=== PATIENT | female | born 1960 | race American Indian/Alaskan Native ===

== ENCOUNTER 2016-07-20 11:25 | Emergency (ER) | payer MEDICAID ==
--- NOTE | 2016-07-20 11:50 | ED Physician Chart ---
Chief Complaint/HPI - Patient Information Date Seen:: 07/20/16 Time Seen:: 11:30 Chief Complaint:: anal pain History of Present Illness:: 56-year-old female, obese, complains of acute, constant, worsening, auditory, nonradiating, worse with sitting and walking walking and wiping, moderate, 7 out of 10, anal pain 1 week. Denies gross blood in stool, gross hematuria, abdominal pain, nausea, vomiting, chest pain or palpitations, fevers. Allergies:: Allergies Allergy/AdvReac Type Severity Reaction Status Date / Time No Known Allergies Allergy Verified 08/25/15 13:36 Vitals:: Vital Signs - 8 hr 07/20/16 11:37 Temp 98 F HR 70 RR 16 BP 142/59 O2 Sat % 98 Historian:: Patient Review:: Nurse's Note Reviewed Review of Systems - Review of Systems Other: Complete system review otherwise unremarkable except as noted in history of present illness. Past Medical History - Past Medical History Past Medical History: No significant medical hx Family History: None Social History: Non Smoker, No Alcohol, No Drug Use, Other Surgical History: None Psychiatricy History: None Medication: None Family Medical History - Family Member Mother Ethnicity: Living Status: Hx Family Diabetes: Yes Physical Exam - Physical Examination Other:: INITIAL VITAL SIGNS: Reviewed by me GENERAL: Alert and interactive. No acute distress HEAD: Head is normocephalic and atraumatic EYES: EOMI. PERRL. No scleral icterus. No conjunctival injection ENT: Moist mucous membranes. NECK: Supple. No masses. Full range of motion RESPIRATORY: No tachypnea. Clear breath sounds bilaterally. No wheezing, rales, or rhonchi CV: Regular rate and rhythm. No murmurs, rubs, or gallops ABDOMEN: Soft, non-distended, non-tender. No guarding. No rebound. No masses. EXTREMITIES: No deformity. No cyanosis. No edema. SKIN: Warm and dry. No obvious rashes. NEUROLOGIC: Alert and oriented. Face is symmetric. Speech is normal. Moves all extremities equally. Motor and sensory distally intact. RECTAL: RN Buyer Grain and Verbal Consent Obtained Sphincter tone is normal. No external hemorrhoids seen. No evidence of anal fissure or internal hemorrhoids. Non-tender to digital rectal palpation. No masses palpated. There is an area of excoriation at the 12 o'clock position. Area has burning on palpation. ED Septic Shock - . Is Septic Shock (SBP<90, OR Lactate>4 mmol\L) present?: No - <6hrs of presentation: Vital Signs: Vital Signs - 8 hr 07/20/16 11:37 Temp 98 F HR 70 RR 16 BP 142/59 O2 Sat % 98 Reassessment (Disposition) - Reassessment Reassessment:: Patient has perianal dermatitis with excoriation at the 12 o'clock position around the anal sphincter. We will prescribe hydrocortisone cream, recommended sitz baths, follow-up primary care 1-2 days. Return to ER precautions given. Patient understands and agrees with plan. Blood pressure was noted to be elevated over 120/80. There were no signs of hypertension. Discussed the findings with the patient and recommended that the patient follow up with the primary care physician regarding the elevated blood pressure. Reassessment Condition:: Improved - Diagnosis Diagnosis:: Acute anal pain due to perianal dermatitis with a small excoriation Elevated blood pressure without the diagnosis of hypertension - Aftercare/Follow up Instructions Aftercare/Follow-Up Instructions:: Counseled pt regarding lab results/diagnosis & need follow up, Refer to Discharge Instructions Medication Prescribed:: Hydrocortisone cream - Patient Disposition Discharge/Transfer:: Home Time:: 12:31 Condition at Disposition:: Improved ED Discharge Plan - Patient Disposition Admit/Discharge/Transfer: PT DISCHARGED HOME Condition at Disposition: Improved Instructions: Sitz Bath, Perianal Dermatitis Additional Instructions: Use flushable baby wipes for the next week after a bowel movement
== END 2016-07-20 12:45 | disposition home or self-care (01) ==
LOC: ER 11:25
DX: L30.8 Other specified dermatitis (principal); R03.0 Elevated blood-pressure reading, without diagnosis of hypertension
CPT/HCPCS: Z7502